=== PATIENT | female | born 2000 | race Caucasian/White ===

== ENCOUNTER 2024-04-05 11:00 | Emergency (ER) | payer OTHER ==
[~2024-04-05] VITALS: Ht 162.6 cm; Wt 59.0 kg
[2024-04-05 11:08] VITALS: BP 115/70; PULSE 64; RESP 20; TEMP 97; O2SAT 100
== END 2024-04-05 11:54 | disposition left against medical advice (07) ==
LOC: MED 11:00
DX: S90.862A Insect bite (nonvenomous), left foot, initial encounter (principal); R11.10 Vomiting, unspecified; R53.83 Other fatigue; Z53.21 Procedure and treatment not carried out due to patient leaving prior to being seen by health care provider; W57.XXXA Bitten or stung by nonvenomous insect and other nonvenomous arthropods, initial encounter; Y92.89 Other specified places as the place of occurrence of the external cause; Y93.89 Activity, other specified; Y99.8 Other external cause status